=== PATIENT | female | born 1965 ===

== ENCOUNTER 2019-09-06 13:56 | Emergency (ER) | payer OTHER ==
[~2019-09-06] VITALS: Ht 165.1 cm; Wt 104.3 kg
[2019-09-06] MEDS ORDERED: COZAAR50 MG (14:30)
[2019-09-06] MEDS ORDERED: GLUCOTROL10 MG (14:30)
[2019-09-06] MEDS ORDERED: FORTAMET1000 MG (14:30)
== END 2019-09-06 20:08 | disposition home or self-care (01) ==
LOC: ER 13:56
DX: M23.361 Other meniscus derangements, other lateral meniscus, right knee (principal); M23.331 Other meniscus derangements, other medial meniscus, right knee; R07.89 Other chest pain